=== PATIENT | female | born 1965 | race African-American/Black ===

== ENCOUNTER 2017-10-16 15:02 | Emergency (ER) | payer MEDICAID ==
[~2017-10-16] VITALS: Ht 154.9 cm; Wt 80.0 kg
[2017-10-16] MEDS ORDERED: FERR324T4 MT (15:33)
[2017-10-16] MEDS ORDERED: SERT20OR6 PO (15:33)
[2017-10-16] MEDS ORDERED: RIVA20TA PO (15:33)
[2017-10-16] MEDS ORDERED: OMEP20CA10 PO (15:33)
[2017-10-16 16:10] LABS: BASOPHILS % 1.1 % (0.0-2.0); EOSINOPHILS % 1.6 % (0.0-5.0); HEMATOCRIT. 37.6 % (36.0-48.0); HEMOGLOBIN. 12.5 g/dL (12.0-16.0); LYMPHOCYTES % 30.7 % (20.0-50.0); MEAN CORPUSCULAR HEMOGLOBIN 28.2 pg (28.0-32.0); MEAN CORPUSCULAR VOLUME 84.8 fL (81.0-99.0); MEAN PLATELET VOLUME 8.6 fl (7.4-10.4); MONOCYTES % 6.9 % (2.0-8.0); NEUTROPHILS % 59.7 % (40.0-76.0); PLATELET 212 x1000/uL (130-400); RED BLOOD CELL COUNT 4.43 mill/uL (4.2-5.4); RED CELL DISTRIBUTION WIDTH 13.8 % (11.6-14.6)
[2017-10-16 16:13] LABS: CHLORIDE 105 mEq/L (98-107)
[2017-10-16 16:20] LABS: PARTIAL THROMBOPLASTIN TIME 25.7 sec (23.4-31.0); PROTHROMBIN TIME 10.7 sec (9.4-11.6)
[2017-10-16 18:24] VITALS: BP 127/69
== END 2017-10-16 18:29 | disposition home or self-care (01) ==
LOC: ER 15:02
DX: R05 Cough (principal); R50.9 Fever, unspecified; J02.9 Acute pharyngitis, unspecified; R09.3 Abnormal sputum; R07.9 Chest pain, unspecified; F41.9 Anxiety disorder, unspecified; K21.9 Gastro-esophageal reflux disease without esophagitis; Z86.718 Personal history of other venous thrombosis and embolism
CPT/HCPCS: 36415; 71045; 80053; 83690; 84484; 85025; 85610; 85730; 93005; 99285